=== PATIENT | male | born 1990 | race Caucasian/White ===

== ENCOUNTER 2017-11-15 18:16 | Emergency (ER) | payer BC ==
[~2017-11-15] VITALS: Ht 172.7 cm; Wt 78.1 kg
[2017-11-15 18:39] VITALS: BP 153/97
[2017-11-15] MEDS ORDERED: IBUPROFEN 600 MG TAB PO ONE (23:45)
[2017-11-16 00:56] VITALS: BP 135/72
== END 2017-11-16 00:57 | disposition home or self-care (01) ==
LOC: MED 18:16
DX: S60.212A Contusion of left wrist, initial encounter (principal); S70.12XA Contusion of left thigh, initial encounter; W20.8XXA Other cause of strike by thrown, projected or falling object, initial encounter; Y93.89 Activity, other specified; Y92.096 Garden or yard of other non-institutional residence as the place of occurrence of the external cause; Y99.8 Other external cause status
CPT/HCPCS: 73130; 99284; Q0092

== ENCOUNTER 2020-07-15 00:50 | Emergency (ER) | payer SELFPAY ==
[~2020-07-15] VITALS: Ht 172.7 cm; Wt 72.6 kg
[2020-07-15 01:05] VITALS: BP 140/90
[2020-07-15] MEDS ORDERED: BACI1PAC6 TP (03:03)
[2020-07-15] MEDS ORDERED: IBUP-2213 PO (03:03)
[2020-07-15] MEDS ORDERED: KETOROLAC 60 MG/2 ML VIAL IM ONE (03:05)
[2020-07-15 03:23] VITALS: BP 140/90
[2020-07-15] MEDS: BACITRACIN OINT 500 UNITS/GM PKT TP ONE ×2 (03:35→03:36)
== END 2020-07-15 03:25 | disposition home or self-care (01) ==
LOC: MED 00:50
DX: L60.0 Ingrowing nail (principal); F17.200 Nicotine dependence, unspecified, uncomplicated; F12.10 Cannabis abuse, uncomplicated; Z79.899 Other long term (current) drug therapy
CPT/HCPCS: 99282; J1885